=== PATIENT | female | born 1955 ===

== ENCOUNTER 2019-01-07 21:24 | Emergency (ER) | payer SELFPAY ==
--- NOTE | 2019-01-07 21:50 | C.PDOC ---
Time Seen by Provider: 01/07/19 21:50 Chief Complaint (Nursing): Weakness/Neurological Deficit Past Medical History Reviewed: Historical Data, Nursing Documentation, Vital Signs Vital Signs: Last Vital Signs Temp 97.3 F L 01/07/19 21:39 Pulse 62 01/07/19 21:39 Resp 28 H 01/07/19 21:39 BP 175/82 H 01/07/19 21:39 Pulse Ox 99 01/07/19 21:39 - Medical History PMH: Anxiety, HTN (TAKES ATENOLOL) Denies: Chronic Kidney Disease - Social History Hx Alcohol Use: No Hx Substance Use: No - Immunization History Hx Tetanus Toxoid Vaccination: No Hx Influenza Vaccination: No Hx Pneumococcal Vaccination: No ED Course And Treatment ECG: Interpreted By Me, Viewed By Me ECG Rhythm: Sinus Rhythm (58), ST/T Changes (lat ischemic changes) O2 Sat by Pulse Oximetry: 99 - Radiology CXR: Interpreted by Me, Viewed By Me NIHSS Stroke Scale 2 - Date/Time Evaluation Performed Date Performed: 01/07/19 Time Performed: 21:50 When Was NIHSS Performed: Baseline - How Severe is the Stroke Level of Consciousness: 0=Alert LOC to Questions: 0=Both comments correct LOC to commands: 0=Obeys both correctly Best Gaze: 0=Normal Visual: 0=No visual loss Facial: 0=Normal Motor Arm - Left: 0=No drift Motor Arm - Right: 0=No drift Motor Leg - Left: 0=No drift Motor Leg - Right: 0=No drift Limb Ataxia: 0=Absent Sensory: 0=Normal Best Language: 0=No aphasia Dysarthia: 0=Normal articulation Extinction & Inattention (Neglect): 0=Normal, no object Score: 0 Disposition Counseled Patient/Family Regarding: Studies Performed, Diagnosis - Disposition Disposition Time: 21:50 Forms: [employer] (Korean)
[2019-01-07] MEDS ORDERED: Aspirin 325 mg EC Tablets PO STA (22:04)
--- NOTE | 2019-01-07 22:09 | C.PDOC ---
History Of Present Illness Patient presents with intermittent right leg paresthisia and pain. Denies any trauma, or prolonged sitting. Speaking in complete sentences. Able to ambulate. Now states that the sensation has resolved. - the numbness and tingling are gone. Very anxious Time Seen by Provider: 01/07/19 21:50 Chief Complaint (Nursing): Weakness/Neurological Deficit History Per: Patient History/Exam Limitations: no limitations Onset/Duration Of Symptoms: Hrs Current Symptoms Are (Timing): Gone Severity: Moderate Pain Scale Rating Of: 4 Location: right leg Reports Recently: Treated By A Physician Recent travel outside of the [place]: No Past Medical History Reviewed: Historical Data, Nursing Documentation, Vital Signs Vital Signs: Last Vital Signs Temp 97.3 F L 01/07/19 21:39 Pulse 62 01/07/19 21:39 Resp 28 H 01/07/19 21:39 BP 175/82 H 01/07/19 21:39 Pulse Ox 99 01/07/19 21:39 - Medical History PMH: Anxiety, HTN (TAKES ATENOLOL) Denies: Chronic Kidney Disease Family History: States: No Known Family Hx - Social History Hx Alcohol Use: No Hx Substance Use: No - Immunization History Hx Tetanus Toxoid Vaccination: No Hx Influenza Vaccination: No Hx Pneumococcal Vaccination: No Review Of Systems Constitutional: Negative for: Fever Eyes: Negative for: Vision Change ENT: Negative for: Throat Pain Cardiovascular: Positive for: Chest Pain Respiratory: Negative for: Shortness of Breath Gastrointestinal: Negative for: Nausea, Vomiting, Abdominal Pain Genitourinary: Negative for: Dysuria Musculoskeletal: Negative for: Back Pain Skin: Negative for: Rash Neurological: Positive for: Numbness (right leg, since resolved). Negative for: Weakness Psych: Positive for: Anxiety Physical Exam - Physical Exam Appears: Non-toxic, No Acute Distress Skin: Warm, Dry Head: Normacephalic Eye(s): bilateral: Normal Inspection, PERRL, EOMI Oral Mucosa: Moist Neck: Trachea Midline, No Midline Cervical Tenderness, Supple Chest: Symmetrical Cardiovascular: Rhythm Regular Respiratory: No Rales, No Rhonchi, No Wheezing Gastrointestinal/Abdominal: Soft, No Tenderness, No Distention Back: No CVA Tenderness Extremity: Normal ROM, No Pedal Edema, Capillary Refill (wnl) Extremity: Bilateral: Atraumatic, Normal Color And Temperature, Normal ROM Pulses: Left Dorsalis Pedis: Normal, Right Dorsalis Pedis: Normal Neurological/Psych: Oriented x3, Normal Speech, Normal Cognition, Normal Motor, Normal Sensation, Normal Reflexes, Other (very anxious) Gait: Steady ED Course And Treatment - Laboratory Results Result Diagrams: 01/07/19 22:28 01/07/19 22:28 ECG: Interpreted By Me, Viewed By Me ECG Rhythm: Sinus Rhythm (58), ST/T Changes (lat ischemic changes) O2 Sat by Pulse Oximetry: 99 Pulse Ox Interpretation: Normal - Radiology CXR: Interpreted by Me, Viewed By Me CXR Interpretation: No: Infiltrates, Fracture, Pnemothorax Progress Note: pt still complaining of right leg pain. Pain med ordered. 1:30 AM Went to re-examine the pt but pt had eloped NIHSS Stroke Scale 2 - Date/Time Evaluation Performed Date Performed: 01/07/19 Time Performed: 21:50 When Was NIHSS Performed: Baseline - How Severe is the Stroke Level of Consciousness: 0=Alert LOC to Questions: 0=Both comments correct LOC to commands: 0=Obeys both correctly Best Gaze: 0=Normal Visual: 0=No visual loss Facial: 0=Normal Motor Arm - Left: 0=No drift Motor Arm - Right: 0=No drift Motor Leg - Left: 0=No drift Motor Leg - Right: 0=No drift Limb Ataxia: 0=Absent Sensory: 0=Normal Best Language: 0=No aphasia Dysarthia: 0=Normal articulation Extinction & Inattention (Neglect): 0=Normal, no object Score: 0 Disposition Counseled Patient/Family Regarding: Studies Performed, Diagnosis - Disposition Disposition: ELOPEMENT - ER ONLY Disposition Time: 22:06 Condition: FAIR Forms: [employer] (Georgian) - Clinical Impression Clinical Impression: Leg pain
[2019-01-07 22:12] VITALS: TEMP 97.3
[2019-01-07 22:22] VITALS: BP 168/78; PULSE 80
[2019-01-07] MEDS ORDERED: Aspirin 325 mg EC Tablets PO ONE (22:30)
[2019-01-07 22:34] LABS: BASO # 0.1 K/uL (0.0-0.2); BASO % 0.5 % (0.0-2.0); EOS # 0.4 K/uL (0.0-0.7); EOS % 3.1 % (0.0-4.0); HEMOGLOBIN 12.7 g/dL (11.0-16.0); LYMPH # 6.4 K/uL (1.0-4.3); LYMPH % 50.3 % (20.0-40.0); MEAN CELL VOLUME 93.4 fL (81.0-99.0); MEAN CORPUSCULAR HEMOGLOBIN 30.7 pg (27.0-31.0); MEAN CORPUSCULAR HGB CONC 32.9 g/dL (33.0-37.0); MEAN PLATELET VOLUME 8.2 fL (7.2-11.7); MONO # 0.7 K/uL (0.0-0.8); MONO % 5.6 % (0.0-10.0); NEUT # 5.1 K/uL (1.8-7.0); NEUT % 40.5 % (50.0-75.0); RBC 4.14 Mil/uL (3.80-5.20); RED CELL DISTRIBUTION WIDTH 12.9 % (11.5-14.5); WHITE BLOOD COUNT 12.7 K/uL (4.8-10.8)
[2019-01-07 22:41] VITALS: O2SAT 99
[2019-01-07 22:52] LABS: ALB/GLOB RATIO 1.5 (1.0-2.1); ALT/SGPT 33 U/L (9-52); AST/SGOT 39 U/L (14-36); BLOOD UREA NITROGEN 25 mg/dL (7-17); CALCIUM 9.4 mg/dl (8.6-10.4); GFR NON-AFRICAN AMERICAN 45; LIPASE 246 U/L (23-300)
[2019-01-07 23:03] LABS: B-TYPE NATRIURETIC PEPTIDE 239 pg/mL (0-900)
[2019-01-08 02:05] VITALS: RESP 22
--- NOTE | 2019-01-08 08:47 | CT ---
Date of service: 01/07/2019 PROCEDURE: CT HEAD WITHOUT CONTRAST. HISTORY: intermittent right leg paresthisia COMPARISON: None available. TECHNIQUE: Axial computed tomography images were obtained through the head/brain without intravenous contrast. Radiation dose: Total exam DLP = 1102.63 mGy-cm. This CT exam was performed using one or more of the following dose reduction techniques: Automated exposure control, adjustment of the mA and/or kV according to patient size, and/or use of iterative reconstruction technique. FINDINGS: HEMORRHAGE: No intracranial hemorrhage. BRAIN: No mass effect or edema. Scattered focal lucencies in the subcortical and periventricular white matter suggestive for chronic microvascular ischemic change. Small bilateral basal ganglia lacunar infarcts. VENTRICLES: Unremarkable. No hydrocephalus. CALVARIUM: Unremarkable. PARANASAL SINUSES: Unremarkable as visualized. No significant inflammatory changes. MASTOID AIR CELLS: Unremarkable as visualized. No inflammatory changes. OTHER FINDINGS: None. IMPRESSION: No acute intracranial abnormality. Chronic microvascular ischemic change. Punctate bilateral basal ganglia lacunar infarcts. If symptoms persists, consider correlation with MRI. A preliminary report was generated at 11:53 p.m. on 01/07/[address] Tarik Alonzo from [employer].
--- NOTE | 2019-01-08 10:07 | RAD ---
Chest x-ray single frontal view HISTORY: Chest pain. COMPARISON: None available. Findings: Mild venous congestion. Enlarged ectatic aorta. Cardiomegaly. Degenerative changes in the spine and shoulders. Impression: Mild venous congestion. Enlarged ectatic aorta. Cardiomegaly.
--- NOTE | 2019-01-08 20:47 | CARD ---
APPROVED REPORT Date of service: 01/07/2019 EKG Measurement Heart [id number] <Conclusion> Sinus bradycardia ST & T wave abnormality, consider lateral ischemia Abnormal ECG
== END 2019-01-08 01:30 | disposition left against medical advice (07) ==
LOC: C.ER 21:24
DX: M79.604 Pain in right leg (principal); I10 Essential (primary) hypertension
CPT/HCPCS: 70450; 71045; 80053; 82948; 83690; 83880; 84484; 85025; 85730; 93005; 96374; 96375; 99285; C9113; J2270; J2405

== ENCOUNTER 2019-01-08 08:52 | Emergency (ER) | payer SELFPAY ==
--- NOTE | 2019-01-08 08:56 | C.PDOC ---
History Of Present Illness 63 year old female with a PMHx of hypertension brought in by ambulance after she was found unresponsive by family, unknown duration. CPR attempted by family prior to EMS arrival. Per EMS, patient was in asystole upon their arrival. She received 6 epi, 1 amp bicarb and 1 calcium via #18g to the right AC and IO to right tibia, and is s/p intubation. EMS CPR TIME APPROX 25 MINS [employer]. CPR in progress upon arrival, with persistent asystole en route and on arrival. Per ED record, patient was [facility] @ [facility] complaining of right leg pain and was noted to have eloped at 1:30AM. Time Seen by Provider: 01/08/19 08:56 Chief Complaint (Nursing): Cardiac Arrest History Per: EMS Reason For Code Blue: Full Arrest Circumstances: Brought To ED By EMS Arrest Witnessed By: No One CPR Initiated Prior To MD Arrival?: Yes Down-Time Before ACLS: Unknown Treatment Initiated Prior To MD Arrival: Yes: CPR, Intubation, ACLS Medication Initiation - Initial Findings Mentation: Unresponsive Respirations: None (Assisted) Rhythm: Asystole Past Medical History Reviewed: Historical Data, Nursing Documentation, Vital Signs - Medical History PMH: Anxiety, HTN (TAKES ATENOLOL) Denies: Chronic Kidney Disease Family History: States: No Known Family Hx - Social History Hx Alcohol Use: No Hx Substance Use: No - Immunization History Hx Tetanus Toxoid Vaccination: No Hx Influenza Vaccination: No Hx Pneumococcal Vaccination: No Review Of Systems Review Of Systems: ROS cannot be obtained secondary to pt's inabilty to answer questions. Physical Exam - Physical Exam Appears: Other (Unresponsive) Skin: Normal Color, Warm Head: Atraumatic, Normacephalic Eye(s): bilateral: Other (Pupils unresponsive) Oral Mucosa: Other (+bloody mouth outputs) Neck: Supple, Other (ET tube in place) Chest: Symmetrical Cardiovascular: Other (No spontaneous rhythm, No palpable or spontaneous femoral pulses) Respiratory: Other (+ air sounds bilaterally) Gastrointestinal/Abdominal: Soft, No Distention Extremity: Bilateral: Normal Color And Temperature, Other (No spontaneous movement) Progress - Re-Evaluation Re-evaluation Note: 01/08/19 09:05 PERSIST ASYSTOLE DESPITE CONTINUED CPR, ADDL EPI. TOD 0905. FAMILY @ BEDSIDE 01/08/19 09:36 nj edres - Data Reviewed Data Reviewed: Old records - Critical Care Citical Care: Excluding Proc Time Critical Care Time: 30 minutes Disposition - Disposition Disposition: WITH WITHOUT AUTOPSY Disposition Time: 09:05 Condition: Forms: [employer] (Danish) - Clinical Impression Clinical Impression: Cardiac arrest, Cardiac asystole - Scribe Statement The provider has reviewed the documentation as recorded by the Scribe Junie Gonzalez Provider Attestation: All medical record entries made by the Bradyibe were at my direction and per sonally dictated by me. I have reviewed the chart and agree that the record accurately reflects my personal performance of the history, physical exam, medical decision making, and the department course for this patient. I have also personally directed, reviewed, and agree with the discharge instructions and disposition.
[2019-01-08 11:51] VITALS: BP 0/0; PULSE 0; RESP 0; O2SAT 0
== END 2019-01-08 09:05 ==
LOC: C.ER 08:52
DX: I46.9 Cardiac arrest, cause unspecified (principal)